=== PATIENT | female | born 1975 | race Caucasian/White ===

== ENCOUNTER 2018-05-06 16:04 | Inpatient (IN) ==
[2018-05-06] MEDS ORDERED: Isovue-370 500 ML INFUS..BTL IV ONE (16:58)
--- NOTE | 2018-05-06 17:10 | Emergency Department Note ---
Disposition Clinical Impression: Multifocal pneumonia, Acute exacerbation of chronic obstructive airways disease Disposition: Admitted As Inpatient Condition: Good Instructions: Community-acquired Pneumonia (ED) Referrals: Genia Browning CNP [Primary Care Provider] - Forms: ED Satisfaction Letter Time of Disposition: 19:49 General Adult HPI - General Chief complaint: ED Shortness of Breath/Dyspnea Stated complaint: "possible pnuemonia sent by " Time Seen by Provider: 05/06/18 16:28 Source: patient Limitations: no limitations - History of Present Illness HPI Narrative: This is a 42-year-old female who reports continuing cough with hemoptysis, any by body aches that have been present for more than 6 weeks. She has been treated for pneumonia several times, and seemed to have an improved chest x-ray without improvement in her symptoms. She has also had courses of prednisone for her COPD, without improvement either. Pain Scale: 8 - Related Data Previous Rx's Medication Instructions Recorded Amoxicillin/Clavulanate [Augmentin] 875 mg PO BIDWM #20 tablet 09/02/16 HYDROcodone/Acet 5/325 mg [[place] 1 tab PO Q6H PRN #5 tab 09/02/16 5-325 mg] levoFLOXacin [Levaquin] 750 mg PO ONCE #5 tablet 03/28/18 Allergies Allergy/AdvReac Type Severity Reaction Status Date / Time aspirin [ASA] Allergy Swelling Verified 05/06/18 16:14 of Lip/Tongue/Throat Sulfa (Sulfonamide Allergy Swelling Verified 05/06/18 16:14 Antibiotics) of Lip/Tongue/Throat Respiratory: Reports: cough, dyspnea, wheezes Past Medical History - Past Medical History Medical history: Reports: no medical history Psychiatric history: Reports: anxiety, bipolar - Social History Smoking Status: Former smoker Smokeless Tobacco Status: No Alcohol use: Reports: none Drug use: Reports: none Physical Exam - General Limitations: no limitations General appearance: alert - Head Head exam: atraumatic, normocephalic, normal inspection - Eye Eye exam: Present: normal appearance, PERRL, EOMI - ENT ENT exam: normal exam, normal oropharynx, mucous membranes moist - Neck Neck exam: Present: normal inspection, full ROM, trachea midline - Chest Chest inspection: Present: normal inspection, symmetric chest wall rise - Respiratory Respiratory exam: Present: wheezes (There are extra wheezes in all lung rod) - Cardiovascular Cardiovascular exam: Present: normal rhythm, tachycardia, normal heart sounds - Abdominal Exam Abdominal exam: Present: soft, Non-Tender. Absent: tenderness, distention, guarding, rebound, rigidity - Extremities Exam Extremities exam: Present: normal inspection, full ROM. Absent: tenderness, pedal edema - Neurological Exam Neurological exam: Present: alert, oriented X3 - Psychiatric Psychiatric exam: Present: normal affect, normal mood - Skin Skin exam: Present: warm, dry, intact, normal color Course Course Narrative: This is a 42-year-old female with symptoms most concerning for pneumonia, possibly not seen on chest x-ray, and possibly with much more severe pathology. Vital Signs Temperature 100.1 F H 05/06/18 16:12 Pulse Rate 110 05/06/18 16:12 Respiratory Rate 22 05/06/18 16:12 Blood Pressure 111/75 05/06/18 16:12 O2 Sat by Pulse Oximetry 88 05/06/18 16:12 Temperature 100.1 F H 05/06/18 16:33 Pulse Rate 110 05/06/18 16:33 Respiratory Rate 22 05/06/18 16:33 Blood Pressure 111/75 05/06/18 16:33 O2 Sat by Pulse Oximetry 88 05/06/18 16:33 Oxygen Delivery Oxygen Delivery Room Air Medical Decision Making - [facility] Narrative Medical decision making narrative: This is a 42-year-old female with multifocal pneumonia as well as COPD. I discussed her case with the on-call hospitalist, who accepted her for admission - Lab Data Lab results reviewed: Yes I reviewed the patient's lab results. Lab results narrative: CBC showed anemia 10.8 and 34.1 with thrombocytosis of 429 BMP was unremarkable Troponin was low Lactic acid was low Result diagrams: 05/06/18 17:26 05/06/18 17:26 Lab Results 05/06/18 05/06/18 05/06/18 Range/Units 17:26 17:26 17:26 WBC 8.5 (4.3-11.1) K/mcL RBC 3.99 (3.82-4.97) M/mcL Hgb 10.8 L (11.5-15.4) g/dL Hct 34.1 L (35.3-44.9) % MCV 85.5 (83.0-100.0) fL MCH 27.1 L (28.0-33.3) pg MCHC 31.7 (31.6-35.5) g/dL RDW 13.8 (11.5-14.5) % Plt Count 429 H (140-400) K/mcL MPV 9.9 (9.4-12.4) fL Immature Gran % 1.1 (0-4) % Seg Neutrophils % 54.4 % Lymphocytes % 20.4 % Monocytes % 7.8 % Eosinophils % 15.7 % Basophils % 0.6 % Neutrophils # 4.7 (1.6-8.9) K/mcL Lymphocytes # 1.7 (0.6-4.6) K/mcL Monocytes # 0.7 (0.0-1.3) K/mcL Eosinophils # 1.3 H (0.0-0.6) K/mcL Basophils # 0.1 (0.0-0.2) K/mcL Sodium 139 (136-145) mEq/L Potassium 3.6 (3.5-5.1) mEq/L Chloride 99 (98-107) mEq/L Carbon Dioxide 29 (23-29) mEq/L BUN 9 (6-20) mg/dL Creatinine 0.65 (0.60-1.20) mg/dL Est GFR ( Amer) > 60 (> 60) Est GFR (Non-Af Amer) > 60 (> 60) BUN/Creatinine Ratio 14 (6-26) Glucose 100 (70-105) mg/dL Calculated Osmolality 287 (280-300) Lactic Acid 0.6 (0.5-2.2) mmol/L Calcium 9.3 (8.6-10.3) mg/dL Troponin I 0.03 (< 0.04) ng/mL - Radiology Data Radiology results reviewed: Yes I reviewed the patient's radiology results. CT chest showed a multifocal pneumonia. - EKG Data EKG #1 EKG attestation: Yes I reviewed and interpreted this EKG. EKG results narrative: ECG showed sinus tachycardia at 100 bpm, normal intervals, normal axis, no ST or T-wave abnormalities Critical Care Time Critical Care Time: Yes Total Critical Care Time: 15 Attestation: 50 minutes of critical care time was invested separate from separately billable procedures
[2018-05-06 17:42] LABS: Basophils # 0.1 K/mcL (0.0-0.2); Basophils % 0.6 %; Eosinophils # 1.3 K/mcL (0.0-0.6); Eosinophils % 15.7 %; Hematocrit 34.1 % (35.3-44.9); Hemoglobin 10.8 g/dL (11.5-15.4); Immature Granulocytes % 1.1 % (0-4); Lymphocytes # 1.7 K/mcL (0.6-4.6); Lymphocytes % 20.4 %; Mean Corpuscular HGB Conc 31.7 g/dL (31.6-35.5); Mean Corpuscular Hemoglobin 27.1 pg (28.0-33.3); Mean Corpuscular Volume 85.5 fL (83.0-100.0); Mean Platelet Volume 9.9 fL (9.4-12.4); Monocytes # 0.7 K/mcL (0.0-1.3); Monocytes % 7.8 %; Neutrophils # 4.7 K/mcL (1.6-8.9); Platelet Count 429 K/mcL (140-400); Red Blood Count 3.99 M/mcL (3.82-4.97); Red Cell Distribution Width 13.8 % (11.5-14.5); Segmented Neutrophils % 54.4 %
[2018-05-06 18:06] LABS: Troponin I 0.03 ng/mL (< 0.04)
[2018-05-06 18:19] LABS: BUN/Creatinine Ratio 14 (6-26); Blood Urea Nitrogen 9 mg/dL (6-20); Calcium 9.3 mg/dL (8.6-10.3); Carbon Dioxide 29 mEq/L (23-29); Chloride 99 mEq/L (98-107); Glucose 100 mg/dL (70-105); Osmolality,Calculated 287 (280-300); Potassium 3.6 mEq/L (3.5-5.1); Sodium 139 mEq/L (136-145); eGFR For Non-African Americans > 60 (> 60)
[2018-05-06] MEDS ORDERED: Azithromycin 250 MG TABLET PO ONE (19:44)
[2018-05-06] MEDS: Cefepime HCl 2,000 MG in Water for inj. (sterile) 20 ML 20 ML IVP SCH (20:39)
[2018-05-07] MEDS ORDERED: Cefepime HCl 2,000 MG in Water for inj. (sterile) 20 ML 20 ML IVP SCH
[2018-05-07] MEDS ORDERED: Ipratropium/Albuterol Neb 3 ML IH PRN (03:15)
[2018-05-07] MEDS ORDERED: diazePAM 10 MG TABLET PO ONE (03:16)
[2018-05-07] MEDS ORDERED: lamoTRIgine 100 MG TABLET PO ONE (03:16)
[2018-05-07] MEDS ORDERED: traZODone 50 MG TABLET PO ONE (03:18)
[2018-05-07] MEDS ORDERED: Naloxone 0.4 MG/ML INJ IVP PRN (06:00)
[2018-05-07] MEDS ORDERED: 0.9 % Sodium Chloride 1,000 ML IVC ONE (06:02)
[2018-05-07] MEDS: Azithromycin 500 MG in D5% in Water 250 ML IVPB SCH (06:37)
--- NOTE | 2018-05-07 07:27 | Internal Med History&Physical ---
Date of Encounter: 05/07/18 Time of Encounter: 04:45 Internal Medicine - H&P: HPI Chief complaint: Bilateral pneumonia Admitted From: Emergency Dept Plans for Post Hospital Care: Home History of present illness: Ms. Hurley is a 42 year old female Patient presented to the ER with 6 week history of difficulty breathing. She states that she has been seen in the ER, and even was admitted to the [facility] for 2 days, but continues to feel sick. She has not had the energy the last few weeks to get out of bed. Symptoms include productive cough of white/ green sputum and shortness of breath. She is unsure if she had a fever or not. She denies sick contacts. She came to the ER for further evaluation. In the ER chest CTA showed multifocal bilateral pneumonia, lactate was 0.6. She received azithromycin, cefepime and vancomycin. Blood cultures were drawn. Upon my assessment, patient is resting comfortably in the bed. No acute distress. She denies nausea, vomiting, chest pain, diarrhea, constipation and abdominal pain. Past Med Surg Social Fam HX - Past Medical History Medical history: non-contributory Additional medical history: kidney stones Psychiatric history: anxiety, bipolar - Past Surgical History Surgical History: hysterectomy Additional surgical history: carpal tunel surgery - Social History Smoking Status: Former smoker Smokeless Tobacco Status: No Alcohol use: none Drug use: none - Family History Mother Hx Family Endocrine Disorder: Yes (DM) Internal Medicine - H&P: Meds Trazodone HCl 300 mg PO HS 05/06/18 [History] diazePAM [Valium] 10 mg PO BID PRN 05/06/18 [History] lamoTRIgine [Lamotrigine] 200 mg PO BID 05/06/18 [History] 3 Allergy/AdvReac Type Severity Reaction Status Date / Time aspirin [ASA] Allergy Swelling Verified 05/06/18 16:14 of Lip/Tongue/Throat Sulfa (Sulfonamide Allergy Swelling Verified 05/06/18 16:14 Antibiotics) of Lip/Tongue/Throat All Systems PM: A 10-system review of systems was performed and is negative for pertinent findings except as documented above in the HPI. - Constitutional Vitals: Temp Pulse Resp BP Pulse Ox 98.1 F 116 18 109/70 90 05/07/18 03:29 05/07/18 03:29 05/07/18 03:36 05/07/18 03:29 05/07/18 03:36 General appearance: Present: cooperative, A&O X 3, pleasant, no acute distress, answers questions appropriately Exam: as above - Head Head exam: Present: normal inspection - Eye Eye exam: Present: EOMI, normal appearance - Neck Neck exam general surgery: Present: full ROM - Respiratory Respiratory exam: Present: rhonchi. Absent: chest wall tenderness, CTAB, wheezes - Cardiovascular Cardiovascular exam: Present: RRR. Absent: diastolic murmur, systolic murmur - GI/Abdominal GI/Abdominal exam: Present: normal bowel sounds, soft. Absent: tenderness - Extremities Exam Extremities exam: Present: warm, radial pulses palpable and symmetrical. Absent : calf tenderness, pedal edema, tenderness - Neurological Exam Neurological exam: Present: no focal deficits, strengths equal and symetr throughout. Absent: motor sensory deficit, facial droop, speech deficit - Skin Skin exam: Present: dry, normal color, warm Internal Med - H&P Results - Labs CBC & Chem 7: 05/06/18 17:26 05/06/18 17:26 - Assessment and plan (1) Multifocal pneumonia Current Visit: Yes Status: Acute Assessment and plan: As evidenced by patient's CTA. Follow up blood cultures. Continue antibiotics. Oxygen supplementation as needed. (2) Dyspnea Current Visit: Yes Status: Acute Assessment and plan: Secondary to above Oxygen as needed. Breathing treatments PRN. Qualifiers: Qualified Code(s): R06.00 - Dyspnea, unspecified (3) Anxiety Current Visit: Yes Status: Acute Assessment and plan: Continue home meds. (4) DVT prophylaxis Current Visit: Yes Status: Acute Assessment and plan: Heparin subq - Time Spent With Patient Total time spent is greater than 50% in coordination of care (as documented) at patient's floor/unit and/or counseling patient: 25 - 35 minutes
[2018-05-07 07:59] LABS: Hematocrit 30.3 % (35.3-44.9); Hemoglobin 9.5 g/dL (11.5-15.4); Mean Corpuscular HGB Conc 31.4 g/dL (31.6-35.5); Mean Corpuscular Hemoglobin 26.5 pg (28.0-33.3); Mean Corpuscular Volume 84.4 fL (83.0-100.0); Mean Platelet Volume 9.8 fL (9.4-12.4); Platelet Count 411 K/mcL (140-400); Red Blood Count 3.59 M/mcL (3.82-4.97)
[2018-05-07 08:20] LABS: BUN/Creatinine Ratio 16 (6-26); Blood Urea Nitrogen 9 mg/dL (6-20); Calcium 9.1 mg/dL (8.6-10.3); Carbon Dioxide 28 mEq/L (23-29); Chloride 100 mEq/L (98-107); Glucose 131 mg/dL (70-105); Osmolality,Calculated 282 (280-300); Potassium 3.6 mEq/L (3.5-5.1); Sodium 136 mEq/L (136-145); eGFR For Non-African Americans > 60 (> 60)
[2018-05-07] MEDS: Cefepime HCl 2,000 MG in Water for inj. (sterile) 20 ML 20 ML IVP SCH ×3 (09:29→23:15)
[2018-05-07] MEDS: Acetaminophen 325 MG TABLET PO PRN ×2 (11:39→21:54)
[2018-05-07] MEDS: GuaiFENesin/Dextromethorphan TABLET PO PRN ×2 (11:39→21:55)
[2018-05-07] MEDS: 0.9 % Sodium Chloride 1,000 ML IVC SCH (15:25)
--- NOTE | 2018-05-07 19:01 | Event Note ---
Date of Encounter: 05/07/18 Time of Encounter: 11:00 Patient evaluated by nocturnalist earlier this morning and also by myself. Patient is a 42-year-old female who presents with shortness of breath found to have bilateral multifocal pneumonia. Will continue supplemental oxygenation as needed and continue IV cefepime, IV azithromycin and IV vancomycin.
[2018-05-07] MEDS: *HR* Heparin 5,000 UNIT/ML VIAL SQ SCH (21:05)
[2018-05-08 01:25] LABS: Hematocrit 31.5 % (35.3-44.9); Hemoglobin 10.1 g/dL (11.5-15.4); Mean Corpuscular HGB Conc 32.1 g/dL (31.6-35.5); Mean Corpuscular Hemoglobin 27.2 pg (28.0-33.3); Mean Corpuscular Volume 84.9 fL (83.0-100.0); Platelet Count 428 K/mcL (140-400); Red Blood Count 3.71 M/mcL (3.82-4.97); Red Cell Distribution Width 14.1 % (11.5-14.5)
[2018-05-08 01:43] LABS: BUN/Creatinine Ratio 13 (6-26); Blood Urea Nitrogen 8 mg/dL (6-20); Carbon Dioxide 30 mEq/L (23-29); Chloride 105 mEq/L (98-107); Glucose 111 mg/dL (70-105); Osmolality,Calculated 291 (280-300); Potassium 3.6 mEq/L (3.5-5.1); Sodium 141 mEq/L (136-145); eGFR For Non-African Americans > 60 (> 60)
[2018-05-08] MEDS ORDERED: traZODone 50 MG TABLET PO ONE (02:00)
[2018-05-08] MEDS ORDERED: lamoTRIgine 100 MG TABLET PO ONE (02:00)
[2018-05-08] MEDS: *HR* Heparin 5,000 UNIT/ML VIAL SQ SCH ×2 (07:15→16:57)
[2018-05-08] MEDS: Cefepime HCl 2,000 MG in Water for inj. (sterile) 20 ML 20 ML IVP SCH ×3 (08:23→22:50)
[2018-05-08] MEDS: Benzonatate 100 MG CAPSULE PO SCH ×2 (08:23→20:42)
[2018-05-08] MEDS: Azithromycin 500 MG in D5% in Water 250 ML IVPB SCH (08:23)
[2018-05-08] MEDS: lamoTRIgine 100 MG TABLET PO SCH ×2 (08:24→20:43)
[2018-05-08] MEDS: 0.9 % Sodium Chloride 1,000 ML IVC SCH ×2 (08:24→20:42)
[2018-05-08] MEDS ORDERED: diazePAM 10 MG TABLET PO PRN (09:46)
--- NOTE | 2018-05-08 18:08 | Internal Med Progress Note ---
Hospitalist Progress Note - Encounter Date of Encounter: 05/08/18 Time of Encounter: 11:00 - Subjective Interval History: Patient presented with shortness of breath found to have bilateral multifocal pneumonia on imaging. Patient continues to require supplemental oxygenation this morning reports little improvement. Patient has been afebrile and without leukocytosis. - Exam Vitals: Temp Pulse Resp BP Pulse Ox 98.6 F 85 18 97/60 96 05/08/18 17:06 05/08/18 17:06 05/08/18 17:06 05/08/18 17:06 05/08/18 17:06 Exam: Gen.: Nonacute distress, alert and oriented 3 ENT: Mucosal membranes moist Respiratory: Lungs are clear to auscultation bilaterally without any wheezing rhonchi or rales Cardiovascular: Normal S1 and S2 regular rate rhythm no murmurs rubs or gallops Abdomen: Soft, nontender and nondistended with positive bowel sounds Extremities: No lower extremity edema Skin: Normal color - Assessment and Plan (1) Multifocal pneumonia Current Visit: Yes Status: Acute Assessment and Plan: Patient found to have multifocal pneumonia on imaging Patient is afebrile without leukocytosis but still requiring supplemental oxygenation. Will continue day 3 of IV cefepime, IV azithromycin and IV vancomycin. (2) Acute exacerbation of chronic obstructive airways disease Current Visit: Yes Status: Acute Assessment and Plan: Will initiate patient on dual nebs and oral prednisone (3) Mood disorder Current Visit: Yes Status: Acute Assessment and Plan: Continue home medications DVT Prophylaxis: Heparin subcutaneous - Time Spent with Patient Total time spent is greater than 50% in coordination of care (as documented) at patient's floor/unit and/or counseling patient: Internal Medicine: Result - Labs CBC & Chem 7: 05/08/18 00:59 05/08/18 00:59 Consult Discharge Plan - Plan Referrals: Genia Browning, [employer] [Primary Care Provider] -
[2018-05-08] MEDS: Ipratropium/Albuterol Neb 3 ML IH SCH ×2 (20:06→23:22)
[2018-05-08] MEDS: traZODone 50 MG TABLET PO SCH (20:43)
[2018-05-09] MEDS: Ipratropium/Albuterol Neb 3 ML IH SCH ×5 (03:55→19:34)
[2018-05-09] MEDS: *HR* Heparin 5,000 UNIT/ML VIAL SQ SCH ×2 (05:54→19:46)
[2018-05-09] MEDS: Benzonatate 100 MG CAPSULE PO SCH ×2 (09:04→21:44)
[2018-05-09] MEDS: predniSONE 20 MG TABLET PO SCH (09:04)
[2018-05-09] MEDS: Cefepime HCl 2,000 MG in Water for inj. (sterile) 20 ML 20 ML IVP SCH ×2 (09:04→16:00)
[2018-05-09] MEDS: lamoTRIgine 100 MG TABLET PO SCH ×2 (09:04→21:44)
[2018-05-09] MEDS: Azithromycin 500 MG in D5% in Water 250 ML IVPB SCH (09:06)
[2018-05-09] MEDS: 0.9 % Sodium Chloride 1,000 ML IVC SCH ×2 (09:07→21:59)
[2018-05-09 11:11] LABS: Basophils % 0.4 %; Eosinophils # 1.2 K/mcL (0.0-0.6); Eosinophils % 13.2 %; Hematocrit 27.6 % (35.3-44.9); Lymphocytes # 1.1 K/mcL (0.6-4.6); Mean Corpuscular HGB Conc 32.6 g/dL (31.6-35.5); Mean Corpuscular Hemoglobin 27.5 pg (28.0-33.3); Mean Corpuscular Volume 84.4 fL (83.0-100.0); Mean Platelet Volume 9.7 fL (9.4-12.4); Monocytes # 0.6 K/mcL (0.0-1.3); Monocytes % 5.9 %; Neutrophils # 6.2 K/mcL (1.6-8.9); Platelet Count 379 K/mcL (140-400); Red Blood Count 3.27 M/mcL (3.82-4.97); Red Cell Distribution Width 14.1 % (11.5-14.5); Segmented Neutrophils % 66.5 %
[2018-05-09 11:33] LABS: BUN/Creatinine Ratio 11 (6-26); Blood Urea Nitrogen 6 mg/dL (6-20); Calcium 8.7 mg/dL (8.6-10.3); Carbon Dioxide 29 mEq/L (23-29); Chloride 107 mEq/L (98-107); Glucose 113 mg/dL (70-105); Osmolality,Calculated 292 (280-300); Potassium 3.5 mEq/L (3.5-5.1); Sodium 142 mEq/L (136-145); eGFR For Non-African Americans > 60 (> 60)
[2018-05-09] MEDS ORDERED: Aminoglycoside Consult 1 EACH MC ONE (13:09)
[2018-05-09] MEDS: GuaiFENesin/Dextromethorphan TABLET PO PRN (16:00)
--- NOTE | 2018-05-09 17:54 | Electrocardiograph Report ---
[place] [id number] Test Date: 2018-05-06 Pat Name: Breanna Hurley Department: EXAM7 Room: [facility] Gender: F [employer] Est[employer]ator: : 1975 Requested By: Shahriar Quinones Order Number: [id number] Reading MD: Lillie Barfield Measurements Intervals [place] Rate: 100 P: 83 MI: 150 QRS: 39 QRSD: 99 T: 48 QT: 324 QTc: 418 Interpretive Statements Sinus tachycardia LAE, consider biatrial enlargement RSR' in V1 or V2, right VCD or RVH Electronically Signed On 05-09-2018 17:52:34 EDT by Lillie Barfield
--- NOTE | 2018-05-09 19:22 | Internal Med Progress Note ---
Hospitalist Progress Note - Encounter Date of Encounter: 05/09/18 Time of Encounter: 11:00 - Subjective Interval History: Patient presented with shortness of breath found to have bilateral multifocal pneumonia on imaging. Patient has been weaned off supplemental oxygenation this morning and reports a feeling better. Will de-escalate IV antibiotics today - Exam Vitals: Temp Pulse Resp BP Pulse Ox 98.5 F 89 18 108/49 95 05/09/18 17:22 05/09/18 17:22 05/09/18 17:22 05/09/18 17:22 05/09/18 17:22 Exam: Gen.: Nonacute distress, alert and oriented 3 ENT: Mucosal membranes moist Respiratory: Lungs are clear to auscultation bilaterally without any wheezing rhonchi or rales Cardiovascular: Normal S1 and S2 regular rate rhythm no murmurs rubs or gallops Abdomen: Soft, nontender and nondistended with positive bowel sounds Extremities: No lower extremity edema Skin: Normal color - Assessment and Plan (1) Multifocal pneumonia Current Visit: Yes Status: Acute Assessment and Plan: Patient found to have multifocal pneumonia on imaging Patient is afebrile without leukocytosis but still requiring supplemental oxygenation. Will de-escalate IV antibiotics today to IV Levaquin (2) Acute exacerbation of chronic obstructive airways disease Current Visit: Yes Status: Acute Assessment and Plan: Continue oral prednisone (3) Mood disorder Current Visit: Yes Status: Acute Assessment and Plan: Continue home medications DVT Prophylaxis: Heparin subcutaneous - Time Spent with Patient Total time spent is greater than 50% in coordination of care (as documented) at patient's floor/unit and/or counseling patient: Internal Medicine: Result - Labs CBC & Chem 7: 05/09/18 11:00 05/09/18 11:00 Labs: Short CBC 05/09/18 Range/Units 11:00 WBC 9.3 (4.3-11.1) K/mcL Hgb 9.0 L (11.5-15.4) g/dL Hct 27.6 L (35.3-44.9) % Plt Count 379 (140-400) K/mcL Neutrophils # 6.2 (1.6-8.9) K/mcL BMP 05/09/18 11:00 Sodium 142 Potassium 3.5 Chloride 107 Carbon Dioxide 29 BUN 6 Creatinine 0.56 L Glucose 113 H Calcium 8.7 Consult Discharge Plan - Plan Referrals: Genia Browning, JOHN [Primary Care Provider] -
[2018-05-09] MEDS: Acetaminophen 325 MG TABLET PO PRN (19:46)
[2018-05-09] MEDS: traZODone 50 MG TABLET PO SCH (21:44)
[2018-05-10] MEDS: Ipratropium/Albuterol Neb 3 ML IH SCH ×4 (00:01→11:37)
[2018-05-10] MEDS: *HR* Heparin 5,000 UNIT/ML VIAL SQ SCH (05:30)
[2018-05-10 08:13] VITALS: BP 121/75
[2018-05-10] MEDS: Acetaminophen 325 MG TABLET PO PRN (08:48)
[2018-05-10] MEDS: Benzonatate 100 MG CAPSULE PO SCH (08:49)
[2018-05-10] MEDS: predniSONE 20 MG TABLET PO SCH (08:49)
[2018-05-10] MEDS: lamoTRIgine 100 MG TABLET PO SCH (08:49)
[2018-05-10] MEDS ORDERED: Levofloxacin 750 MG/150 ML 750 MG/150 ML BAG IVPB SCH (09:00)
--- NOTE | 2018-05-10 12:08 | Discharge Summary ---
- NOTES TO OUTPATIENT PROVIDER Notes to Outpatient Provider: none Date of Encounter: 05/10/18 Time of Encounter: 11:00 - Discharge Diagnosis (1) Multifocal pneumonia Priority: Primary Status: Acute (2) Acute exacerbation of chronic obstructive airways disease Priority: Primary Status: Acute (3) Mood disorder Priority: Secondary Status: Acute Hospital course: Patient is a 42-year-old female with past medical history significant for COPD and mood disorder who presents to the ER on 05/08/18 due to shortness of breath. Patient was recently evaluated and treated as an inpatient at [facility] for 2 days before being discharged. She reports however of no improvement with productive cough and malaise. Patient decided to come in to the ER at [facility] for evaluation. In the ER, chest CTA showed multifocal bilateral pneumonia, lactate was 0.6. She received azithromycin, cefepime and vancomycin. Blood cultures were drawn. She was admitted to medical surgical floor for further evaluation and management. During patients hospital stay, she was treated with a 3 day course of IV azithromycin, IV cefepime and IV vancomycin. She was also treated with dual nebs and IV Solu-Medrol. Patients symptoms have dramatically improved and she will be discharged home to complete a 5 day course of oral Levaquin and oral prednisone. Patient will also take Mucinex as needed for cough in addition to albuterol as needed for shortness of breath/wheezing. - Time Spent with Patient Total time spent providing and/or coordinating discharge services: Less than 30 minutes - Discharge Medications Prescriptions: Albuterol Sulfate [Albuterol Inhaler] 2 puff IH Q4HR PRN #1 inhaler PRN Reason: Shortness Of Breath GuaiFENesin/Dextromethorphan [Mucinex Dm] 1 each PO BID PRN #30 tab.er.12h PRN Reason: Cough levoFLOXacin [Levaquin] 750 mg PO DAILY 5 Days #5 tablet predniSONE [PredniSONE] 40 mg PO DAILY 5 Days #10 tablet Home Medications: Trazodone HCl 300 mg PO HS 05/06/18 [History] diazePAM [Valium] 10 mg PO BID PRN 05/06/18 [History] lamoTRIgine [Lamotrigine] 200 mg PO BID 05/06/18 [History] Albuterol Sulfate [Albuterol Inhaler] 2 puff IH Q4HR PRN #1 inhaler 05/10/18 [Rx ] GuaiFENesin/Dextromethorphan [Mucinex Dm] 1 each PO BID PRN #30 tab.er.12h 05/10 [Rx] levoFLOXacin [Levaquin] 750 mg PO DAILY 5 Days #5 tablet 05/10/18 [Rx] predniSONE [PredniSONE] 40 mg PO DAILY 5 Days #10 tablet 05/10/18 [Rx] Allergies/Adverse Reactions: 3 Allergy/AdvReac Type Severity Reaction Status Date / Time aspirin [ASA] Allergy Swelling Verified 05/06/18 16:14 of Lip/Tongue/Throat Sulfa (Sulfonamide Allergy Swelling Verified 05/06/18 16:14 Antibiotics) of Lip/Tongue/Throat Date of admission: 05/08/18 09:48 Primary care physician: Genia Browning CNP - Constitutional Vitals: Temp Pulse Resp BP Pulse Ox 97.9 F 89 17 121/75 93 05/10/18 08:12 05/10/18 08:12 05/10/18 08:12 05/10/18 08:12 05/10/18 08:12 General appearance: Present: cooperative, A&O X 3, pleasant, no acute distress, answers questions appropriately Exam: Gen.: Nonacute distress, alert and oriented 3 Respiratory: Lungs are clear to auscultation bilaterally without any wheezing rhonchi or rales Cardiovascular: Normal S1 and S2 regular rate rhythm no murmurs rubs or gallops - Patient Status Disposition: Home, Self-Care Condition: Good - Discharge Instructions Instructions: How to Stop Smoking (DC), Chronic Obstructive Pulmonary Disease ( DC), Pneumonia (DC) Follow Up With: Genia Browning CNP [Primary Care Provider] - 05/13/18 1:30 pm Sandro Starr MD [Partnered Physician] - 06/04/18 1:00 pm Additional Instructions: Take all medications as prescribed. Finish all antibiotics even if you feel better. Go to nearest ER for any new or worsening symptoms.
== END 2018-05-10 13:10 | disposition home or self-care (01) | DRG 190 ==
LOC: 3NENU 16:04 → EMEROOARM 16:04 → SUATTDRO 21:52 → 3NENU 22:53
PROVIDERS: ADMIT Pediatrics; ATTEND Hospitalist

== ENCOUNTER 2020-04-16 08:46 | Observation (INO) ==
[2020-04-16] MEDS ORDERED: Isovue-370 500 ML BOTTLE IVP ONE (09:39)
[2020-04-16] MEDS ORDERED: Morphine Sulfate 2 MG/ML SYRINGE IVP ONE (09:41)
[2020-04-16] MEDS ORDERED: Ondansetron 4 MG/2 ML VIAL IVP ONE (09:45)
[2020-04-16 10:02] LABS: Basophils % 0.4 %; Eosinophils % 0.4 %; Hematocrit 38.6 % (35.3-44.9); Hemoglobin 11.8 g/dL (11.5-15.4); Immature Granulocytes % 0.2 % (0-4); Lymphocytes # 1.4 K/mcL (0.6-4.6); Lymphocytes % 31.1 %; Mean Corpuscular HGB Conc 30.6 g/dL (31.6-35.5); Mean Corpuscular Hemoglobin 26.6 pg (28.0-33.3); Mean Corpuscular Volume 87.1 fL (83.0-100.0); Monocytes # 0.4 K/mcL (0.0-1.3); Monocytes % 8.6 %; Neutrophils # 2.7 K/mcL (1.6-8.9); Platelet Count 255 K/mcL (140-400); Red Blood Count 4.43 M/mcL (3.82-4.97); Segmented Neutrophils % 59.3 %; White Blood Count 4.6 K/mcL (4.3-11.1)
[2020-04-16 10:22] LABS: BUN/Creatinine Ratio 19 (6-26); Blood Urea Nitrogen 16 mg/dL (6-20); Calcium 9.9 mg/dL (8.6-10.3); Carbon Dioxide 30 mEq/L (23-29); Chloride 106 mEq/L (98-107); Glucose 93 mg/dL (70-105); Osmolality,Calculated 293 (280-300); Potassium 3.8 mEq/L (3.5-5.1); Sodium 141 mEq/L (136-145); eGFR For African Americans > 60 (> 60); eGFR For Non-African Americans > 60 (> 60)
[2020-04-16] MEDS ORDERED: *HR* FentaNYL (PF) 100 MCG/2 ML VIAL IVP ONE (12:33)
[2020-04-16] MEDS ORDERED: Piperacillin/Tazobactam 3.375 GM in Water for inj. (sterile) 20 ML IVP ONE (12:58)
[2020-04-16] MEDS ORDERED: Clindamycin 600 MG/50 ML 600 MG/50 ML IV.SOLN IVPB STA (14:07)
[2020-04-16] MEDS ORDERED: Acetaminophen 325 MG TABLET PO PRN (15:38)
[2020-04-16] MEDS ORDERED: Ondansetron ODT 4 MG TAB.RAPDIS SL PRN (15:38)
[2020-04-16] MEDS ORDERED: Naloxone 0.4 MG/ML INJ IVP PRN (15:38)
[2020-04-16] MEDS ORDERED: Ipratropium/Albuterol Neb 3 ML IH PRN (15:42)
[2020-04-16] MEDS: *HR* Heparin 5,000 UNIT/ML VIAL SQ SCH (16:40)
[2020-04-16] MEDS: *HR* OxyCODONE Immed Rel 5 MG TABLET PO PRN (16:41)
[2020-04-16] MEDS: lamoTRIgine 100 MG TABLET PO SCH (20:27)
[2020-04-16] MEDS: traZODone 50 MG TABLET PO SCH (20:29)
[2020-04-16] MEDS: Budesonide/Formoterol 160/4.5 1 PUFF INH IH SCH (20:31)
[2020-04-16] MEDS ORDERED: diazePAM 10 MG TABLET PO ONE (20:39)
[2020-04-16] MEDS: Piperacillin/Tazobactam 3.375 GM in 0.9 % Sodium Chloride Mini Bag 100 ML IVPB SCH (21:17)
[2020-04-17] MEDS: *HR* OxyCODONE Immed Rel 5 MG TABLET PO PRN ×4 (00:06→19:50)
[2020-04-17 02:40] LABS: Basophils % 0.7 %; Eosinophils % 0.9 %; Hematocrit 35.8 % (35.3-44.9); Immature Granulocytes % 0.2 % (0-4); Lymphocytes # 1.9 K/mcL (0.6-4.6); Mean Corpuscular HGB Conc 30.7 g/dL (31.6-35.5); Mean Corpuscular Hemoglobin 26.7 pg (28.0-33.3); Mean Corpuscular Volume 86.9 fL (83.0-100.0); Monocytes # 0.4 K/mcL (0.0-1.3); Monocytes % 9.5 %; Neutrophils # 2.1 K/mcL (1.6-8.9); Platelet Count 247 K/mcL (140-400); Red Blood Count 4.12 M/mcL (3.82-4.97); Red Cell Distribution Width 13.9 % (11.5-14.5); Segmented Neutrophils % 46.7 %; White Blood Count 4.4 K/mcL (4.3-11.1)
[2020-04-17 03:00] LABS: BUN/Creatinine Ratio 19 (6-26); Blood Urea Nitrogen 16 mg/dL (6-20); Calcium 9.5 mg/dL (8.6-10.3); Carbon Dioxide 26 mEq/L (23-29); Chloride 104 mEq/L (98-107); Glucose 93 mg/dL (70-105); Osmolality,Calculated 289 (280-300); Potassium 3.8 mEq/L (3.5-5.1); Sodium 139 mEq/L (136-145); eGFR For African Americans > 60 (> 60); eGFR For Non-African Americans > 60 (> 60)
[2020-04-17] MEDS: *HR* Heparin 5,000 UNIT/ML VIAL SQ SCH ×2 (05:56→17:32)
[2020-04-17] MEDS: Piperacillin/Tazobactam 3.375 GM in 0.9 % Sodium Chloride Mini Bag 100 ML IVPB SCH ×3 (05:56→21:40)
[2020-04-17] MEDS: Budesonide/Formoterol 160/4.5 1 PUFF INH IH SCH ×2 (08:11→20:14)
[2020-04-17] MEDS: lamoTRIgine 100 MG TABLET PO SCH ×2 (11:16→21:40)
[2020-04-17] MEDS: traZODone 50 MG TABLET PO SCH (21:40)
[2020-04-18 01:10] LABS: Hematocrit 35.6 % (35.3-44.9); Hemoglobin 11.2 g/dL (11.5-15.4); Mean Corpuscular HGB Conc 31.5 g/dL (31.6-35.5); Mean Corpuscular Hemoglobin 27.1 pg (28.0-33.3); Mean Corpuscular Volume 86.2 fL (83.0-100.0); Mean Platelet Volume 9.7 fL (9.4-12.4); Platelet Count 243 K/mcL (140-400); Red Blood Count 4.13 M/mcL (3.82-4.97); Red Cell Distribution Width 13.7 % (11.5-14.5); White Blood Count 4.9 K/mcL (4.3-11.1)
[2020-04-18 01:29] LABS: BUN/Creatinine Ratio 22 (6-26); Blood Urea Nitrogen 17 mg/dL (6-20); Calcium 9.3 mg/dL (8.6-10.3); Carbon Dioxide 26 mEq/L (23-29); Chloride 104 mEq/L (98-107); Glucose 100 mg/dL (70-105); Osmolality,Calculated 290 (280-300); Potassium 3.9 mEq/L (3.5-5.1); Sodium 139 mEq/L (136-145); eGFR For African Americans > 60 (> 60); eGFR For Non-African Americans > 60 (> 60)
[2020-04-18] MEDS: *HR* OxyCODONE Immed Rel 5 MG TABLET PO PRN ×2 (01:51→08:42)
[2020-04-18] MEDS: *HR* Heparin 5,000 UNIT/ML VIAL SQ SCH (05:54)
[2020-04-18] MEDS: Piperacillin/Tazobactam 3.375 GM in 0.9 % Sodium Chloride Mini Bag 100 ML IVPB SCH (05:54)
[2020-04-18 07:41] VITALS: BP 96/63
[2020-04-18] MEDS: Budesonide/Formoterol 160/4.5 1 PUFF INH IH SCH (07:53)
[2020-04-18] MEDS: lamoTRIgine 100 MG TABLET PO SCH (08:39)
== END 2020-04-18 12:40 | disposition home or self-care (01) ==
LOC: 3BNU 08:46 → EMEROOARM 08:46 → 3BNU 15:33
PROVIDERS: ADMIT Internal Medicine; ATTEND Internal Medicine